=== PATIENT | female | born 1995 | race Caucasian/White ===

== ENCOUNTER 2022-10-09 15:20 | Observation (INO) | payer BC ==
[~2022-10-09 15:20] MED LIST: Iopamidol 300 61% 100 ML VIAL FS ONE
[2022-10-09 16:18] LABS: Hemoglobin 14.2 g/dL (12.0-15.5); Mean Corpuscular Hemoglobin 32.5 pg (27.0-33.0); Mean Corpuscular Volume 92.9 fl (81.6-98.3); Mean Platelet Volume 10.1 fl (7.4-10.4); Platelet Count 274 10x3/uL (150-450); RBC Distribution Width 11.4 % (11.5-14.5); Red Blood Cell (RBC) Count 4.37 10x6/uL (3.90-5.03); White Blood Cell (WBC) Count 24.3 10x3/uL (3.5-10.5)
[2022-10-09 16:32] LABS: MDiff Complete? YES; Manual Diff?? YES
[2022-10-09 16:33] LABS: BHCG - Serum Negative (NEGATIVE); Pregs Control Background? CLEAR/WHITE (CLR/WHITE); Pregs Control Bar Appear? YES (CONTROL BAR)
[2022-10-09 16:35] LABS: Band 8 % (5-11); Diff Comment (RBC Morph SCRN) N; Lymphocytes 3 % (21-51); Monocytes 2 % (0-10); Neutrophil 87 % (42-75)
[2022-10-09 16:36] LABS: Platelet Morphology Comment Appears Adequate; RBC Morphology Normal
[2022-10-09] MEDS ORDERED: Ondansetron PF 4 MG/2 ML Vial ONE (16:37)
[2022-10-09] MEDS ORDERED: Morphine 4 MG/ML VIAL ONE (16:37)
[2022-10-09 16:41] LABS: ALT (SGPT) 8 U/L (8-55); AST (SGOT) 16 U/L (5-34); Albumin 4.7 g/dL (3.5-5.0); Alkaline Phosphatase 58 U/L (40-110); Anion Gap 13 mmol/L (10-20); BUN (Urea Nitrogen) 17 mg/dL (7.0-18.7); Bilirubin, Total 0.8 mg/dL (0.2-1.2); Calc. Creatinine Clearance 0 mL/min (70-130); Calcium 9.2 mg/dL (7.8-10.44); Carbon Dioxide 24 mmol/L (22-29); Chloride 107 mmol/L (98-107); Estimated GFR 124; Globulin 2.3 g/dL (2.4-3.5); Glucose 127 mg/dL (70-105); Lipase 22 U/L (8-78); Potassium 3.8 mmol/L (3.5-5.1); Sodium 140 mmol/L (136-145)
[2022-10-09 17:18] LABS: SARS-CoV-2 NAA Rapid Test Not Detected (NotDetected)
[2022-10-09] MEDS ORDERED: Piperacillin/Tazobactam 4.5 GM VIAL ONE (17:59)
[2022-10-09] MEDS ORDERED: Piperacillin/Tazobactam 3.375 GM VIAL ONE (18:00)
[2022-10-09 18:29] LABS: Bilirubin Neg (Negative); Blood, Urine 10 (Negative); Clarity Clear (Clear); Glucose, Urine (Dipstick) Normal (Negative); Ketone, Urine Negative (Negative); Leukocyte Negative (Negative); Nitrite Negative (Negative); Protein, Urine (Dipstick) Negative (Neg-Trace); Urobilinogen Normal mg/dL (Less than 2)
[2022-10-09 18:38] LABS: Bacteria/HPF Rare-Few HPF (None Seen); RBC/HPF 0-3 HPF (0-3); Squamous Epithelial 0-3 HPF (0-3); WBC/HPF None Seen HPF (0-3)
[2022-10-09] MEDS ORDERED: Ondansetron PF 4 MG/2 ML Vial IVP PRN (19:53)
[2022-10-09] MEDS ORDERED: diphenhydrAMINE 50 MG/ML VIAL IVP PRN (19:53)
[2022-10-09] MEDS ORDERED: Morphine 4 MG/ML VIAL SLOW IVP PRN (19:53)
[2022-10-09] MEDS ORDERED: Morphine 2 MG/ML VIAL SLOW IVP PRN (20:01)
[2022-10-09] MEDS ORDERED: Famotidine/PF 20 mg/2ml Vial ONE (21:14)
[2022-10-09] MEDS: Famotidine/PF 20 mg/2ml Vial SLOW IVP SCH (21:20)
[2022-10-09] MEDS: Lactated Ringer's 1,000 ML IV SCH (21:30)
[2022-10-09] MEDS ORDERED: Piperacillin/Tazobactam 3.375 GM in Sodium Chloride 0.9% 100 ML IVPB SCH (22:00)
[2022-10-10 03:30] LABS: #Monocytes 0.6 10x3/uL (0.0-1.1); #Neutrophils 10.2 10x3/uL (1.5-8.4); %Basophils 0.2 % (0.0-2.0); %Eosinophils 0.3 % (0.0-6.0); %Lymphocytes 11.7 % (18.0-47.0); %Monocytes 4.6 % (0.0-10.0); Hemoglobin 11.7 g/dL (12.0-15.5); Mean Corpuscular Hemoglobin 32.6 pg (27.0-33.0); Mean Platelet Volume 10.2 fl (7.4-10.4); Platelet Count 219 10x3/uL (150-450); RBC Distribution Width 11.4 % (11.5-14.5); Red Blood Cell (RBC) Count 3.59 10x6/uL (3.90-5.03); White Blood Cell (WBC) Count 12.3 10x3/uL (3.5-10.5)
[2022-10-10] MEDS ORDERED: Piperacillin/Tazobactam 3.375 GM VIAL ONE (03:39)
[2022-10-10] MEDS: Piperacillin/Tazobactam 3.375 GM in Sodium Chloride 0.9% 100 ML IVPB SCH ×3 (04:55→21:00)
[2022-10-10] MEDS: Lactated Ringer's 1,000 ML IV SCH (04:55)
[2022-10-10 09:21] VITALS: BMI 21.0
[2022-10-10] MEDS: Famotidine/PF 20 mg/2ml Vial SLOW IVP SCH (09:30)
[2022-10-10] MEDS: Ketorolac Tromethamine 30 MG/ML VIAL IVP PRN ×2 (10:36→21:01)
[2022-10-10] MEDS: 1/2 NS w/KCL 20 mEq 1,000 ML IV SCH (10:39)
[2022-10-11] MEDS: Famotidine/PF 20 mg/2ml Vial SLOW IVP SCH (00:51)
[2022-10-11] MEDS: 1/2 NS w/KCL 20 mEq 1,000 ML IV SCH (00:59)
[2022-10-11 03:16] LABS: #Eosinphils 0.2 10x3/uL (0.0-0.5); #Monocytes 0.5 10x3/uL (0.0-1.1); #Neutrophils 4.6 10x3/uL (1.5-8.4); %Basophils 0.4 % (0.0-2.0); %Eosinophils 2.4 % (0.0-6.0); %Lymphocytes 21.3 % (18.0-47.0); %Monocytes 7.8 % (0.0-10.0); Hemoglobin 11.2 g/dL (12.0-15.5); Mean Corpuscular HGB CONC 34.5 g/dL (32.0-36.0); Mean Corpuscular Hemoglobin 32.4 pg (27.0-33.0); Mean Corpuscular Volume 93.9 fl (81.6-98.3); Mean Platelet Volume 10.3 fl (7.4-10.4); Platelet Count 211 10x3/uL (150-450); RBC Distribution Width 11.2 % (11.5-14.5); Red Blood Cell (RBC) Count 3.46 10x6/uL (3.90-5.03); White Blood Cell (WBC) Count 6.8 10x3/uL (3.5-10.5)
[2022-10-11] MEDS: Piperacillin/Tazobactam 3.375 GM in Sodium Chloride 0.9% 100 ML IVPB SCH (04:25)
[2022-10-11 09:32] VITALS: BP 103/65; TEMP 98.1
== END 2022-10-11 08:45 | disposition home or self-care (01) ==
LOC: CSHERS 15:20 → CSHERHOLD 22:34 → INTOOBSV 22:34 → CSHPP 10-10 08:46
PROVIDERS: ADMIT Surgery; ATTEND Surgery
DX: R10.31 Right lower quadrant pain (principal); Z79.899 Other long term (current) drug therapy; Z20.822 Contact with and (suspected) exposure to COVID-19
CPT/HCPCS: 36415; 74177; 80053; 81003; 81015; 83605; 83690; 84703; 85025; 86850; 86900; 86901; 96361; 96365; 96366; 96375; 96376; G0378; J1885; J2270; J2405; J2543; J3480; J3490; J7120; Q9967; S0028; U0002

== ENCOUNTER 2024-04-04 09:25 | Outpatient (CLI) | payer BC | END 2024-04-04 09:26 | disposition home or self-care (01) | LOC: CSHULT 09:25 | PROVIDERS: ATTEND Family Medicine | DX: Z34.02 Encounter for supervision of normal first pregnancy, second trimester (principal); Z3A.21 21 weeks gestation of pregnancy | CPT/HCPCS: 76805 ==

== ENCOUNTER 2024-05-03 18:53 | Day surgery (SDC) | payer BC ==
[2024-05-03] MEDS ORDERED: hydrALAZINE 20 MG/ML VIAL SLOW IVP PRN (18:55)
[2024-05-03 19:34] VITALS: BMI 24.3
[2024-05-03 20:05] LABS: Bilirubin Neg (Negative); Blood, Urine Negative (Negative); Clarity Clear (Clear); Glucose, Urine (Dipstick) Normal (Negative); Ketone, Urine Negative (Negative); Leukocyte Negative (Negative); Nitrite Negative (Negative); Protein, Urine (Dipstick) Negative (Neg-Trace); Urobilinogen Normal mg/dL (Less than 2)
[2024-05-03 20:24] LABS: FFN Internal QC Analyzer PASS (PASS); FFN Internal QC Cassette PASS (PASS); Fetal Fibronectin Negative (Negative)
[2024-05-03 20:27] LABS: Bacteria/HPF Rare-Few HPF (None Seen); CAUTI Indications for Culture Pregnancy; RBC/HPF None Seen HPF (0-3); Squamous Epithelial 0-3 HPF (0-3); Urine Culture Reflex No No; Urine Culture Reflex Yes Yes; WBC/HPF None Seen HPF (0-3)
== END 2024-05-03 21:16 | disposition home or self-care (01) ==
LOC: CSHLD/OP 18:53
PROVIDERS: ATTEND Family Medicine
DX: O47.02 False labor before 37 completed weeks of gestation, second trimester (principal); O99.891 Other specified diseases and conditions complicating pregnancy; M41.9 Scoliosis, unspecified; M47.816 Spondylosis without myelopathy or radiculopathy, lumbar region; Z79.82 Long term (current) use of aspirin; Z79.899 Other long term (current) drug therapy; Z3A.25 25 weeks gestation of pregnancy
CPT/HCPCS: 76817; 81001; 82731; 87086

== ENCOUNTER 2024-08-06 15:00 | Inpatient (IN) | payer BC ==
[2024-08-06 15:33] LABS: #Basophils 0.03 10x3/uL (0.0-0.2); #Eosinophils 0.04 10x3/uL (0.0-0.5); #Monocytes 0.72 10x3/uL (0.0-1.1); #Neutrophils 11.13 10x3/uL (1.5-8.4); %Basophils 0.2 % (0.0-2.0); %Eosinophils 0.3 % (0.0-6.0); %Lymphocytes 6.3 % (18.0-47.0); %Monocytes 5.6 % (0.0-10.0); %Neutrophils 87.1 % (40.0-75.0); Hematocrit 36.1 % (34.9-44.5); Hemoglobin 13.3 g/dL (12.0-15.5); Mean Corpuscular HGB CONC 36.8 g/dL (32.0-36.0); Mean Corpuscular Hemoglobin 35.8 pg (27.0-33.0); Platelet Count 237 10x3/uL (150-450); RBC Distribution Width 13.5 % (11.5-14.5); Red Blood Cell (RBC) Count 3.72 10x6/uL (3.90-5.03); White Blood Cell (WBC) Count 12.78 10x3/uL (3.5-10.5)
[2024-08-06 15:45] LABS: ALT (SGPT) 16 U/L (Less than 34); AST (SGOT) 29 U/L (11-34); Albumin 3.4 g/dL (3.1-4.5); Alkaline Phosphatase 144 U/L (40-110); Anion Gap 15 mmol/L (10-20); BUN (Urea Nitrogen) 8 mg/dL (7.0-18.7); Bilirubin, Total 0.5 mg/dL (0.3-1.2); Calc. Creatinine Clearance 0 mL/min (70-130); Calcium 8.9 mg/dL (7.8-10.44); Carbon Dioxide 17 mmol/L (22-29); Chloride 106 mmol/L (98-107); Estimated GFR 127; Globulin 3.1 g/dL (2.4-3.5); Glucose 120 mg/dL (70-105); Potassium 3.6 mmol/L (3.5-5.1); Protein, Total 6.5 g/dL (6.0-8.3); Sodium 134 mmol/L (136-145)
[2024-08-06 18:55] VITALS: BMI 26.5
[2024-08-06] MEDS: Acetaminophen 500 MG TAB PO PRN (20:00)
[2024-08-06] MEDS: Ondansetron PF 4 MG/2 ML Vial IVP PRN (20:02)
[2024-08-06] MEDS: Lactated Ringer's 1,000 ML IV SCH (22:00)
[2024-08-06] MEDS ORDERED: fentaNYL 50 mcg/mL 1 mL Vial SLOW IVP PRN (22:05)
[2024-08-06] MEDS ORDERED: Promethazine HCl 25 MG/ML VIAL IM PRN (22:05)
[2024-08-06] MEDS ORDERED: hydrALAZINE 20 MG/ML VIAL SLOW IVP PRN (22:05)
[2024-08-06] MEDS ORDERED: Lidocaine 1% (PF) 30 ML VIAL SC PRN (22:05)
[2024-08-06] MEDS ORDERED: Misoprostol 200 MCG TAB PR PRN (22:17)
[2024-08-06] MEDS ORDERED: Diphenoxylate HCl/Atropine Tablet PO PRN (22:17)
[2024-08-06] MEDS ORDERED: Methylergonovine 0.2 MG/ML VIAL IM PRN (22:17)
[2024-08-06] MEDS ORDERED: Carboprost 250 MCG/ML AMP IM PRN (22:17)
[2024-08-06] MEDS ORDERED: Tranexamic Acid 1,000 MG/10 ML VIAL IVP PRN (22:17)
[2024-08-06] MEDS ORDERED: Ibuprofen 800 MG TAB PO PRN (22:27)
[2024-08-06] MEDS ORDERED: HYDROcodone/Acetaminophen 5/325 mg Tablet PO PRN (22:27)
[2024-08-06] MEDS ORDERED: Oxytocin 30 units/NS 500 ML 500 ML IV SCH ×2 (23:00)
[2024-08-07] MEDS: Oseltamivir 75 MG CAP PO SCH (08:35)
[2024-08-08] MEDS: Oseltamivir 75 MG CAP PO SCH (04:26)
[2024-08-08] MEDS: Lactated Ringer's 1,000 ML IV SCH (04:26)
[2024-08-08] MEDS: Benzocaine/Menthol 1 LOZ LOZ PO PRN (04:33)
[2024-08-08] MEDS: Oxytocin 30 units/NS 500 ML 500 ML IV SCH (06:03)
[2024-08-08 09:39] LABS: Syphilis Antibody Nonreactive (Nonreactive); Syphilis Antibody Index 0.05 S/CO (<1.00 Non-Reactive)
[2024-08-08 09:41] LABS: HBsAg Index 0.16 S/CO (0-0.99); Hep B Surf Ag - L&D Non-Reactive S/CO (NonReactive)
[2024-08-08] MEDS ORDERED: Lactated Ringer's 500 ML IV PRN (10:51)
[2024-08-08] MEDS ORDERED: Moisturizing Cream (Eucerin) 113 GM JAR TOP PRN (10:51)
[2024-08-08] MEDS ORDERED: diphenhydrAMINE 50 MG/ML VIAL IVP PRN (10:51)
[2024-08-08] MEDS ORDERED: Ondansetron PF 4 MG/2 ML Vial IVP PRN ×2 (10:51→17:01)
[2024-08-08] MEDS ORDERED: Promethazine HCl 25 MG/ML VIAL IM PRN ×2 (10:51→17:01)
[2024-08-08] MEDS ORDERED: Acetaminophen 325 MG TAB PO PRN (10:51)
[2024-08-08] MEDS ORDERED: ePHEDrine Sulfate 50 MG/10 ML VIAL SLOW IVP PRN (10:51)
[2024-08-08] MEDS ORDERED: Naloxone HCl 0.4 mg/ml Vial IVP PRN ×2 (10:51)
[2024-08-08] MEDS: fentaNYL/Ropivacaine Epidural 100 ML ONE (10:54)
[2024-08-08] MEDS ORDERED: Communication Order-Pharmacy FS SCH (11:00)
[2024-08-08] MEDS ORDERED: fentaNYL 2 mcg/Ropivacaine 0.2% Epidural 100 ML CADD EPIDURAL SCH (11:00)
[2024-08-08] MEDS: Ondansetron PF 4 MG/2 ML Vial IVP PRN (11:27)
[2024-08-08] MEDS ORDERED: Bisacodyl 10 MG SUPP PR PRN (17:01)
[2024-08-08] MEDS ORDERED: Lanolin Ointment 7 GM TUBE TOP PRN (17:01)
[2024-08-08] MEDS ORDERED: diphenhydrAMINE 25 MG CAP PO PRN (17:01)
[2024-08-08] MEDS ORDERED: Benzocaine-Menthol 82.5 ML CAN TOP PRN (17:01)
[2024-08-08] MEDS ORDERED: Milk Of Magnesia 30 ML UDCUP PO PRN (17:01)
[2024-08-08] MEDS ORDERED: hydrALAZINE 20 MG/ML VIAL SLOW IVP PRN (17:01)
[2024-08-08] MEDS: HYDROcodone/Acetaminophen 5/325 mg Tablet PO PRN (18:13)
[2024-08-08] MEDS: CEFAZOLIN 1 GM in Sodium Chloride 0.9% 100 ML IVPB SCH (18:14)
[2024-08-08] MEDS: Docusate 100 MG CAP PO SCH (20:38)
[2024-08-08] MEDS: Polyethylene Glycol 3350 17 GM Packet PO SCH (20:40)
[2024-08-08] MEDS: metroNIDAZOLE 500 MG in Premix 1 BAG IVPB SCH (20:41)
[2024-08-08] MEDS: Ibuprofen 800 MG TAB PO SCH (21:03)
[2024-08-08] MEDS: Lidocaine 1% (PF) 30 ML VIAL ONE (21:12)
[2024-08-08] MEDS: Ferrous Sulfate 325 MG TAB PO SCH (21:13)
[2024-08-09] MEDS: Boostrix 0.5 ML (Tdap) VIAL (>/=7 yrs of age) IM ONE (00:22)
[2024-08-09] MEDS: metroNIDAZOLE 500 MG in Premix 1 BAG IVPB SCH (06:00)
[2024-08-09] MEDS: Prenatal Vitamin 1 TAB PO SCH (07:57)
[2024-08-10] MEDS: Polyethylene Glycol 3350 17 GM Packet PO SCH (21:26)
[2024-08-11 08:03] VITALS: BP 124/71; TEMP 97.9
== END 2024-08-11 16:25 | disposition home or self-care (01) | DRG 768 ==
LOC: CSHERS 15:00 → CSHLD/OP 18:17 → CSHLD 19:25 → CSHPP 08-08 18:20
PROVIDERS: ADMIT Family Medicine; ATTEND Family Medicine
PROC: 10907ZC Drainage of Amniotic Fluid, Therapeutic from Products of Conception, Via Natural or Artificial Opening (ICD-10-PCS; principal; 2024-08-08)
PROC: 0DQR0ZZ Repair Anal Sphincter, Open Approach (ICD-10-PCS; 2024-08-08)
PROC: 10E0XZZ Delivery of Products of Conception, External Approach (ICD-10-PCS; 2024-08-08)
DX: O36.8130 Decreased fetal movements, third trimester, not applicable or unspecified (principal); Z37.0 Single live birth; O76 Abnormality in fetal heart rate and rhythm complicating labor and delivery; O99.52 Diseases of the respiratory system complicating childbirth; J10.1 Influenza due to other identified influenza virus with other respiratory manifestations; O99.284 Endocrine, nutritional and metabolic diseases complicating childbirth; E86.0 Dehydration; O70.20 Third degree perineal laceration during delivery, unspecified; Z3A.39 39 weeks gestation of pregnancy; Z79.82 Long term (current) use of aspirin; Z90.89 Acquired absence of other organs; O69.81X0 Labor and delivery complicated by cord around neck, without compression, not applicable or unspecified
CPT/HCPCS: 36415; 51702; 71045; 76819; 80053; 83880; 84145; 85025; 86780; 86850; 86900; 86901; 87340; 87428; 93005; 99285; J0690; J2405; J2590; J7120